=== PATIENT | female | born 1955 | race Caucasian/White ===

== ENCOUNTER → 2017-03-21 | Outpatient (CLI) | payer MEDICARE | END | disposition home or self-care (01) | LOC: PCVCCLINIC 14:55 | PROVIDERS: ATTEND Internal Medicine Cardiovascular Disease | DX: I45.10 Unspecified right bundle-branch block (principal); I10 Essential (primary) hypertension; E78.00 Pure hypercholesterolemia, unspecified; E11.9 Type 2 diabetes mellitus without complications; C50.919 Malignant neoplasm of unspecified site of unspecified female breast; N28.9 Disorder of kidney and ureter, unspecified; J45.909 Unspecified asthma, uncomplicated; Z87.898 Personal history of other specified conditions; Z90.49 Acquired absence of other specified parts of digestive tract; Z79.82 Long term (current) use of aspirin; Z79.84 Long term (current) use of oral hypoglycemic drugs; Z79.899 Other long term (current) drug therapy | CPT/HCPCS: 80061; 93005; G0463 ==

== ENCOUNTER → 2017-12-21 | Outpatient (CLI) | payer MEDICARE ==
[~2017-12-21] MED LIST: REGADENOSON 0.4 MG/5 ML DISP.SYRIN. IV
== END | disposition home or self-care (01) ==
LOC: PCVCIMAG 10:48
DX: R55 Syncope and collapse (principal); I10 Essential (primary) hypertension; E78.5 Hyperlipidemia, unspecified; E78.00 Pure hypercholesterolemia, unspecified; R94.31 Abnormal electrocardiogram [ECG] [EKG]; Z85.3 Personal history of malignant neoplasm of breast; Z82.49 Family history of ischemic heart disease and other diseases of the circulatory system; Z79.899 Other long term (current) drug therapy; Z79.82 Long term (current) use of aspirin
CPT/HCPCS: 78452; 80061; 93005; 93017; A9500; G0463; J2785

== ENCOUNTER → 2018-07-09 | Outpatient (CLI) | payer MEDICARE | END | disposition home or self-care (01) | LOC: PCVCCLINIC 14:24 | PROVIDERS: ATTEND Internal Medicine Cardiovascular Disease | DX: I10 Essential (primary) hypertension (principal); E78.00 Pure hypercholesterolemia, unspecified; E11.9 Type 2 diabetes mellitus without complications; J45.909 Unspecified asthma, uncomplicated; Z82.49 Family history of ischemic heart disease and other diseases of the circulatory system; Z79.84 Long term (current) use of oral hypoglycemic drugs; Z79.899 Other long term (current) drug therapy | CPT/HCPCS: 80061; 93005; G0463 ==

== ENCOUNTER → 2019-04-10 | Outpatient (CLI) | payer MEDICARE | END | disposition home or self-care (01) | LOC: PCVCCLINIC 10:30 | PROVIDERS: ATTEND Internal Medicine Cardiovascular Disease | DX: E78.00 Pure hypercholesterolemia, unspecified (principal); I10 Essential (primary) hypertension; E11.9 Type 2 diabetes mellitus without complications; J45.909 Unspecified asthma, uncomplicated; Z82.49 Family history of ischemic heart disease and other diseases of the circulatory system; Z72.89 Other problems related to lifestyle; Z79.82 Long term (current) use of aspirin; Z79.899 Other long term (current) drug therapy | CPT/HCPCS: 36415; 80061; 93005; G0463 ==

== ENCOUNTER → 2019-05-15 | Outpatient (CLI) | payer MEDICARE ==
--- NOTE | 2019-05-15 12:31 | PCVCIMAG ---
APPROVED REPORT Study performed: 05/15/2019 10:50:42 Exam: Stress Echocardiogram Indication: CAD, elevated Cor Ca+ score,htn Patient Location: Echo lab Stress Nurse: Itzel Vora RN Room #: 2 Status: routine Ht: 5 ft 6 in HR: 86 bpm BP: 100/60 mmHg Rhythm: NSR Medical History Medical History: Diabetes, HTN, Hyperlipidemia Cardiac Risk Factors: FHX of CAD, HTN, Hyperlipidemia, DM Previous Cardiac Procedures: none Exercise History: Sedentary Physical Disabilities: Back, L hip Procedure The patient underwent an Exercise Stress Test using the Kevin Protocol. Blood pressure, heart rate, and EKG were monitored. An Echocardiogram was performed by automotive service technician in four stages in quad fashion. At peak stress, four selected images were obtained and placed side by side with resting images for comparison. Stress Test Details Stress Test: Exercise stress testing was performed using a Kevin protocol. HR Resting HR: 86 bpmMax Heart Rate (APMHR): 158 bpm Max HR Achieved: 150 bpmTarget HR (85% APMHR): 134 bpm % of APMHR: 94 Recovery HR: 94 bpm HR response to stress: Normal HR response to stress BP Resting BP: 100/60 mmHg Max BP: 180/84 mmHg Recovery BP: 106/78 mmHg BP response to stress: Abnormal hypertensive response to stress. ECG Resting ECG: Sinus Rhythm, RBBB Stress ECG: Sinus Rhythm, RBBB ST Change: Non-ischemic Maximum ST Deviation: -1.8 mm Arrhythmia: APC's Recovery ECG: Sinus Rhythm, RBBB Recovery ST Change: Non-ischemic Recovery ST Deviation: -0.60 mm Recovery Arrhythmia: APC Clinical Reason for Termination: Maximal effort Stress Symptoms: hip pain Exercise duration: 5 min 00 sec Highest Stage Achieved: Stage 2: 2.5 mph at 12% grade. Exercise capacity: 7 METs Overall Exercise Capacity for Age: Poor Scale: Sedentary Angina Score: None No complications. Stress ECG Conclusion The patient exercised according to the KEVIN protocol for 5:00 mins; achieving a work level of 7.0 METS. The resting heart rate of 86 bpm samir to a maximum heart rate of 150 bpm. This value represents 94% of the maximal, age-predicted heart rate. The resting blood pressure of 100/60mmHg, samir to a maximum blood pressure of 180/84 mmHg. The exercise test was stopped due to fatigue. Ramon Treadmill Score is 14.0 which is Low risk. Pre-Stress Echo The resting Echocardiogram showed normal left ventricular contractility with an estimated Ejection Fraction of about 55-60%. Normal wall motion in all segments on baseline images. Post-Stress Echo The stress Echocardiogram showed normal left ventricular contractility with an estimated Ejection Fraction of about 65-70%. Normal augmentation of wall motion in all segments on post stress images. Clinical No clinical or ECG evidence for ischemia. Conclusion Clinical Response: Non-ischemic Exercise Capacity: Below Average Stress ECG Response: Non-ischemic Stress Echo Images: Non-ischemic Normal stress echocardiogram with maximal exercise stress. No clinical, EKG or echocardiographic evidence for ischemia. No echocardiographic evidence for exercise induced ischemia. Normal color doppler. No regurgitation or stenosis present on pulmonic, mitral, tricuspid or aortic valves. <Conclusion> Normal stress echocardiogram with maximal exercise stress. No clinical, EKG or echocardiographic evidence for ischemia. No echocardiographic evidence for exercise induced ischemia. Normal color doppler. No regurgitation or stenosis present on pulmonic, mitral, tricuspid or aortic valves.
== END | disposition home or self-care (01) ==
LOC: PCVCIMAG 10:01
PROVIDERS: ATTEND Internal Medicine Cardiovascular Disease
DX: E78.5 Hyperlipidemia, unspecified (principal); I10 Essential (primary) hypertension; E11.9 Type 2 diabetes mellitus without complications
CPT/HCPCS: 93325; 93351